=== PATIENT | female | born 1980 | race American Indian/Alaskan Native ===

== ENCOUNTER 2018-02-25 20:55 | Inpatient (IN) | payer MEDICAID, OTHER ==
[2018-02-25 20:55] VITALS: BMI 21.2
[2018-02-25] MEDS ORDERED: Sodium Chloride 0.9% 250 ML IV STA (21:36)
--- NOTE | 2018-02-25 22:23 | ED PDOC ---
HPI: General Adult Time Seen by Provider: 02/25/18 21:11 Chief Complaint (Nursing): Weakness/Neurological Deficit Chief Complaint (Provider): Low Blood Pressure History Per: Patient History/Exam Limitations: no limitations Onset/Duration Of Symptoms: Days (today) Current Symptoms Are (Timing): Still Present Additional Complaint(s): 37 year old female with chronic kidney disease, DM, and HTN presents to the ED with lower blood pressure and weakness onset last night. Patient reports associated lightheadedness, fatigue and a couple episodes of diarrhea. She states she usually gets dialysis on Sunday, Sunday and Sunday but was unable to get it today because her blood pressure was too low. Patient denies nausea, vomiting, cough, fever, chills or any other medical complaints. PMD: Dr. Seo Past Medical History Reviewed: Historical Data, Nursing Documentation, Vital Signs Vital Signs: Last Vital Signs Temp 98.1 F 03/01/18 17:00 Pulse 100 H 03/01/18 17:00 Resp 20 03/01/18 17:00 BP 151/83 H 03/01/18 17:00 Pulse Ox 100 03/01/18 17:00 - Medical History PMH: Anemia, Diabetes, HTN, Chronic Kidney Disease Denies: Depression, Deep Vein Thrombosis - Surgical History Surgical History: No Surg Hx Denies: Pacemaker - Family History Family History: States: Unknown Family Hx - Immunization History Hx Tetanus Toxoid Vaccination: No Hx Influenza Vaccination: No Hx Pneumococcal Vaccination: No - Home Medications Home Medications: Ambulatory Orders Medication Instructions Recorded No Known Home Med 02/26/18 - Allergies Allergies/Adverse Reactions: Allergies Allergy/AdvReac Type Severity Reaction Status Date / Time vancomycin Allergy RASH Verified 02/25/18 20:56 Review of Systems ROS Statement: Except As Marked, All Systems Reviewed And Found Negative Constitutional: Positive for: Weight loss ENT: Positive for: Throat Pain, Other Neurological: Positive for: Weakness Physical Exam - Reviewed Nursing Documentation Reviewed: Yes Vital Signs Reviewed: Yes - Physical Exam Appears: Positive for: No Acute Distress (tired and chronically ill) Head Exam: Positive for: ATRAUMATIC, NORMOCEPHALIC Skin: Positive for: Warm, Dry (ichthyotic skin on all extremities). Negative for: Rash ENT: Positive for: Pharynx Is (clear), Other (tacky mucous membranes) Neck: Positive for: Painless ROM, Supple Cardiovascular/Chest: Positive for: Regular Rate, Rhythm. Negative for: Murmur Respiratory: Positive for: Normal Breath Sounds. Negative for: Respiratory Distress Gastrointestinal/Abdominal: Positive for: Soft. Negative for: Tenderness Extremity: Positive for: Other (poor muscle bulk diffusely, Lower extremities: sutures in place post AV shunt placement, wound clean, dry, and intact, palpable thrill) Neurologic/Psych: Positive for: Alert, Oriented (x3) - Laboratory Results Result Diagrams: 02/28/18 04:35 03/01/18 09:14 - ECG O2 Sat by Pulse Oximetry: 100 (RA) Pulse Ox Interpretation: Normal Medical Decision Making Medical Decision Making: Time: 21:32 Initial Impression: lower back pain, dehydration, rule out sepsis or electrolyte abnormalities Initial Plan: --Type and screen --EKG --CMP --Lactic acid --magnesium --Phosphorus --urine preg --u dip --CBC with differentials --Partial Thromboplastin --Prothrombin time --CXR --NS --Blood culture --Urine Culture Scribe Attestation: Documented by Tori Orozco, acting as a scribe for Ely Peter MD Provider Scribe Attestation: All medical record entries made by the Scribe were at my direction and personally dictated by me. I have reviewed the chart and agree that the record accurately reflects my personal performance of the history, physical exam, medical decision making, and the department course for this patient. I have also personally directed, reviewed, and agree with the discharge instructions and disposition. Disposition - Clinical Impression Clinical Impression: Metabolic acidosis, Renal failure, ESRD (end stage renal disease) - Patient ED Disposition Is Patient to be Admitted: Transfer of Care - Disposition Disposition: Transfer of Care Disposition Time: 00:00 Condition: FAIR Patient Signed Over To: Saeed Bah Handoff Comments: pending Er workup, reassessment and final disposition
[2018-02-25 22:51] LABS: BASO # 0.1 K/uL (0.0-0.2); EOS # 0.2 K/uL (0.0-0.7); HEMOGLOBIN 9.6 g/dL (12.0-16.0); LYMPH # 1.4 K/uL (1.0-4.3); LYMPH % 12.5 % (20.0-40.0); MEAN CELL VOLUME 82.6 fl (81.0-99.0); MEAN CORPUSCULAR HEMOGLOBIN 25.4 pg (27.0-31.0); MEAN CORPUSCULAR HGB CONC 30.7 g/dL (33.0-37.0); MEAN PLATELET VOLUME 7.8 fl (7.2-11.7); MONO # 0.8 K/uL (0.0-0.8); MONO % 7.2 % (0.0-10.0); NEUT # 8.9 K/uL (1.8-7.0); NEUT % 77.3 % (50.0-75.0); NRBC % 0.1 % (0.0-0.0); RBC 3.79 Mil/uL (3.80-5.20); RED CELL DISTRIBUTION WIDTH 18.8 % (11.5-14.5); WHITE BLOOD COUNT 11.6 K/uL (4.8-10.8)
[2018-02-25 22:57] LABS: INR 1.1 (0.9-1.2); PROTHROMBIN TIME 12.3 Seconds (9.8-13.1)
[2018-02-25 22:58] LABS: PARTIAL THROMBOPLASTIN TIME 43.5 Seconds (25.6-37.1)
--- NOTE | 2018-02-26 00:30 | ED PDOC ---
- Laboratory Results Result Diagrams: 02/26/18 15:50 02/26/18 15:50 - ECG O2 Sat by Pulse Oximetry: 100 (RA) Pulse Ox Interpretation: Normal Medical Decision Making Medical Decision Making: Time; 00:00 --Transfer of care given to this provider by Dr. Peter pending ER workup and final disposition. Time: 00:30 --labs reviewed and were significant for marked metabolic acidosis as demonstrated by CO2 level of less than 5. --She also has marked elevated BUN and creatinine levels which is suggestive of missed dialysis session. --Patient denies missing any other session before today, which the provider is suspicious of. Time: 00:34 --Patient will be admitted to ICU as discussed with Dr. Ventura, hospitalist. Diagnosis is metabolic acidosis and end stage renal disease. Time; 01:47 --Dr. Apodaca is aware of patient and knows her well. He asks that patient be dialyzed. --Dialysis nurse has been called. ---- Scribe Attestation: Documented by Jo Conley, acting as a scribe for Saeed Bah MD Provider Scribe Attestation: All medical record entries made by the Scribe were at my direction and personally dictated by me. I have reviewed the chart and agree that the record accurately reflects my personal performance of the history, physical exam, medical decision making, and the department course for this patient. I have also personally directed, reviewed, and agree with the discharge instructions and disposition. Disposition - Clinical Impression Clinical Impression: Metabolic acidosis, Renal failure, ESRD (end stage renal disease) - POA Present On Arrival: None - Disposition Disposition: Admitted as In-Patient Disposition Time: 00:34 Condition: FAIR
[2018-02-26 00:31] LABS: ALB/GLOB RATIO 0.7 (1.0-2.1); ALBUMIN 4.2 g/dL (3.5-5.0); ALT/SGPT 12 U/L (9-52); AST/SGOT 15 U/L (14-36); BLOOD UREA NITROGEN 143 mg/dl (7-17); CALCIUM 8.9 mg/dL (8.4-10.2); GFR AFRICAN-AMERICAN 5; GFR NON-AFRICAN AMERICAN 4
--- NOTE | 2018-02-26 01:08 | CP.PCM.CON ---
History of Present Illness - History of Present Illness History of Present Illness: Attending: Dr Sanchez PMD: Dr Seo Repair Mechanic: Dr Apodaca Reason for consult: Critical care Management Chief Complaint: Generalized weakness/ Low Blood pressure The patient was seen and examined in the ED HPI: The Hx was obtained from the patient and after review of the medical chart. She is a 37 years old female with hx of DM II, HTN, ESRD on HD MWF. Because her blood pressure was very low today, hemodialysis was not done ,and she was sent to the ED for management. BP in ED 72/41mmHg. She referred no headache, dizziness, nausea, vomits, cough, fever, chills,chest pain nor SOB. She did have lightheadedness, fatigue and few episodes of Diarrhea. PMH: Anemia, Diabetes, HTN, ESRD on HD WMF; BM II; Diabetic foot ulcer; Sacral Decubitus; Anemia; PVD of right leg; CHF? PSH: Cesarian section; Right leg vascular surgery 12years ago SH: No smoking of cigarettes; No illegal drug use; No Alcohol; Live with the family Allergies: Vancomycin Medication: Denies Review of Systems - Constitutional Constitutional: Weakness. absent: Chills, Fever, Headache - EENT Eyes: Requires Corrective Lenses. absent: Diplopia, Floaters, Sees Flashes Ears: absent: Decreased Hearing, Ear Discharge, Tinnitus Nose/Mouth/Throat: absent: Epistaxis, Nasal Congestion, Sinus Pain, Sinus Pressure - Cardiovascular Cardiovascular: absent: Chest Pain, Dyspnea, Leg Edema - Respiratory Respiratory: absent: Cough, Dyspnea, Wheezing, Stridor, Chest Congestion - Gastrointestinal Gastrointestinal: Diarrhea. absent: Constipation, Nausea, Vomiting - Genitourinary Genitourinary: absent: Dysuria, Flank Pain, Urinary Frequency - Musculoskeletal Musculoskeletal: Arthralgias, Numbness. absent: Joint Swelling - Integumentary Integumentary: absent: Rash - Neurological Neurological: Dizziness. absent: Confusion, Focal Weakness, Vertigo - Psychiatric Psychiatric: absent: Anxiety, Depression, Panic Attacks - Endocrine Endocrine: absent: Palpitations, Polyphagia, Polyuria - Hematologic/Lymphatic Hematologic: absent: Easy Bleeding, Easy Bruising Past Patient History - Infectious Disease Hx of Infectious Diseases: None - Tetanus Immunizations Tetanus Immunization: Unknown - Past Medical History & Family History Past Medical History?: Yes - Past Social History Smoking Status: Never Smoked Chewing Tobacco Use: No Cigar Use: No Alcohol: None Drugs: Denies Home Situation {Lives}: With Family - CARDIAC Hx Hypertension: Yes Hx Pacemaker: No - PULMONARY Hx Respiratory Disorders: No - NEUROLOGICAL Hx Neurological Disorder: Yes Other/Comment: NEUROPATHY - HEENT Hx HEENT Problems: No - RENAL Hx Chronic Kidney Disease: Yes Hx Dialysis: Yes - ENDOCRINE/METABOLIC Hx Diabetes Mellitus Type 2: Yes - HEMATOLOGICAL/ONCOLOGICAL Hx Anemia: Yes - INTEGUMENTARY Hx Dermatological Problems: No - MUSCULOSKELETAL/RHEUMATOLOGICAL Hx Falls: No - GASTROINTESTINAL Hx Gastrointestinal Disorders: No - GENITOURINARY/GYNECOLOGICAL Hx Genitourinary Disorders: No - PSYCHIATRIC Hx Depression: No - SURGICAL HISTORY Hx Section: Yes Hx Mastectomy: No - ANESTHESIA Hx Anesthesia: Yes Hx Anesthesia Reactions: No Meds Allergies/Adverse Reactions: Allergies Allergy/AdvReac Type Severity Reaction Status Date / Time vancomycin Allergy RASH Verified 02/25/18 20:56 Physical Exam - Constitutional Appears: No Acute Distress - Head Exam Head Exam: ATRAUMATIC, NORMAL INSPECTION, NORMOCEPHALIC - Eye Exam Eye Exam: EOMI, Normal appearance Pupil Exam: NORMAL ACCOMODATION, PERRL - ENT Exam ENT Exam: Mucous Membranes Dry, Normal External Ear Exam - Neck Exam Neck exam: Positive for: Full Rom, Normal Inspection. Negative for: Lymphadenopathy, Tenderness - Respiratory Exam Respiratory Exam: Clear to Auscultation Bilateral. absent: Rales, Rhonchi, Wheezes - Cardiovascular Exam Cardiovascular Exam: REGULAR RHYTHM, RRR, +S1, +S2 - GI/Abdominal Exam GI & Abdominal Exam: Normal Bowel Sounds, Soft. absent: Mass, Organomegaly, Tenderness - Rectal Exam Rectal Exam: Deferred - Extremities Exam Additional comments: both lower extremities with dried skin with the right leg showing areas of skin wound healing. - Back Exam Back exam: NORMAL INSPECTION. absent: CVA tenderness (L), CVA tenderness (R) - Neurological Exam Neurological exam: Alert, CN II-XII Intact, Oriented x3, Reflexes Normal - Psychiatric Exam Psychiatric exam: Normal Affect, Normal Mood - Skin Skin Exam: Dry, Intact, Warm Results - Vital Signs Recent Vital Signs: Last Vital Signs Temp 98.8 F 02/25/18 20:56 Pulse 83 02/25/18 22:21 Resp 21 02/25/18 22:21 BP 106/43 L 02/25/18 22:21 Pulse Ox 100 02/26/18 01:06 - Labs Result Diagrams: 02/25/18 22:47 02/25/18 23:55 Labs: Laboratory Results - last 24 hr 02/25/18 02/25/18 02/25/18 22:47 22:47 22:47 WBC 11.6 H RBC 3.79 L Hgb 9.6 L Hct 31.3 L MCV 82.6 MCH 25.4 L MCHC 30.7 L RDW 18.8 H Plt Count 277 MPV 7.8 Neut % (Auto) 77.3 H Lymph % (Auto) 12.5 L [place] % (Auto) 7.2 Eos % (Auto) 2.0 Baso % (Auto) 1.0 Neut # (Auto) 8.9 H Lymph # (Auto) 1.4 [place] # (Auto) 0.8 Eos # (Auto) 0.2 Baso # (Auto) 0.1 PT 12.3 INR 1.1 APTT 43.5 H Sodium Potassium Chloride Carbon Dioxide Anion Gap BUN Creatinine Est GFR ( Amer) Est GFR (Non-Af Amer) Random Glucose Lactic Acid 1.2 Calcium Phosphorus Magnesium Total Bilirubin AST ALT Alkaline Phosphatase Total Protein Albumin Globulin Albumin/Globulin Ratio Blood Type Antibody Screen BBK History Checked 02/25/18 02/25/18 23:55 23:55 WBC RBC Hgb Hct MCV MCH MCHC RDW Plt Count MPV Neut % (Auto) Lymph % (Auto) [place] % (Auto) Eos % (Auto) Baso % (Auto) Neut # (Auto) Lymph # (Auto) [place] # (Auto) Eos # (Auto) Baso # (Auto) PT INR APTT Sodium 136 Potassium 4.9 Chloride 109 H Carbon Dioxide < 5 L* Anion Gap 27 H BUN 143 H* Creatinine 11.2 H* Est GFR ( Amer) 5 Est GFR (Non-Af Amer) 4 Random Glucose 270 H Lactic Acid Calcium 8.9 Phosphorus 7.4 H Magnesium 3.0 H Total Bilirubin 0.8 AST 15 ALT 12 Alkaline Phosphatase 233 H D Total Protein 10.5 H Albumin 4.2 Globulin 6.3 H Albumin/Globulin Ratio 0.7 L Blood Type B POSITIVE Antibody Screen Negative BBK History Checked Patient has bt - Imaging and Cardiology Chest x-ray Status: Image reviewed by me Additional comment: No infiltrate Cardiomegaly Right Internal jugular dialysis catheter with tip in right ventricle Assessment & Plan - Assessment and Plan (Free Text) Assessment: #. Hypotension #. Metabolic Acidosis #. DM II with Hyperglycemia #. ESRD On HD #. Anemia of chronic diseases; #. Leukocytosis Plan: 37 years old female with hx of DM II, HTN, ESRD on HD MWF. Because her blood pressure was very low today, hemodialysis was not done ,and she was sent to the ED for management. She referred no headache, dizziness, nausea, vomits, cough, fever, chills,chest pain nor SOB. She did have lightheadedness, fatigue and few episodes of Diarrhea. #. Hypotension in this patient could be caused by poor intake added to the Diarrhea that she mentioned - NS 250mls given in ED. 500mls bolus given in ICU followed by an IV drip - Will need [facility] for Dialysis if BP does not improve. BP in ICU 102/48mmHg - Monitor Blood pressure #. Metabolic Acidosis caused by the CKD - Administer 100mEq of Sodium Bicarbonate and follow with an IV drip of Sodium Bicarbonate at 80mls/hr - Follow ABG #. DM II with Hyperglycemia - Insulin Lispro sliding scale according to accucheck - HbA1c #. ESRD On HD - Consult Dr Apodaca Repair Mechanic for Hemodialysis #. Anemia of chronic diseases; - Follow hemoglobin #. Reactive Leukocytosis - follow WBC #. DVT prophylaxis with SCD and Heparin #. Code Status: Full - Date & Time Date: 02/26/18 Time: 01:07
[2018-02-26] MEDS ORDERED: Sodium Bicarbonate 7.5% (0.9 MEQ/ML) 50ML INJ IV ONE (02:53)
[2018-02-26] MEDS ORDERED: Sodium Chloride 0.9% 500 ML IV ONE (04:01)
[2018-02-26 04:40] LABS: ABG ALLEN TEST YES
[2018-02-26] MEDS: Sodium Bicarbonate 8.4% 100 MEQ in Dextrose 5%/0.45% NS 1,000 ML IV SCH ×2 (04:56→18:13)
[2018-02-26] MEDS ORDERED: Albumin Human 25% (12.5 gm/50 ml) IV ONE (08:09)
--- NOTE | 2018-02-26 08:12 | CP.PCM.CON ---
History of Present Illness - History of Present Illness History of Present Illness: Cope order 37 years of age female admitted to the emergency room complaining of lightheaded dizziness and she was found to have low blood pressure and very high BUN/creatinine. Patient stated that she did not have dialysis because of the low blood pressure and she is not cooperating well. Patient was admitted to intensive care unit and called for dialysis. the history was not completely available because of the patient is not given complete history and she does not want to talk much PMH: Anemia, Diabetes, HTN, ESRD on HD WMF; BM II; Diabetic foot ulcer; Sacral Decubitus; Anemia; PVD of right leg; CHF? PSH: Cesarian section; Right leg vascular surgery 12years ago SH: No smoking of cigarettes; No illegal drug use; No Alcohol; Live with the family Allergies: Vancomycin Review of Systems - Constitutional Constitutional: Malaise. absent: Chills, Fever - EENT Eyes: As Per HPI Nose/Mouth/Throat: absent: Epistaxis, Post Nasal Drip - Cardiovascular Cardiovascular: Dyspnea, Dyspnea on Exertion, Edema, Pedal Edema. absent: Acrocyanosis, Chest Pain - Respiratory Respiratory: Cough, Dyspnea, Chest Congestion. absent: Hemoptysis - Gastrointestinal Gastrointestinal: absent: Abdominal Pain, Coffee Ground Emesis, Vomiting - Genitourinary Genitourinary: Nocturia - Musculoskeletal Musculoskeletal: Abnormal Gait, Muscle Weakness - Neurological Neurological: Abnormal Gait. absent: Confusion - Psychiatric Psychiatric: Anxiety - Endocrine Endocrine: Fatigue - Hematologic/Lymphatic Hematologic: absent: Easy Bleeding Past Patient History - Infectious Disease Hx of Infectious Diseases: None - Tetanus Immunizations Tetanus Immunization: Unknown - Past Medical History & Family History Past Medical History?: Yes - Past Social History Smoking Status: Never Smoked Chewing Tobacco Use: No Cigar Use: No Alcohol: None Drugs: Denies Home Situation {Lives}: With Family - CARDIAC Hx Hypertension: Yes Hx Pacemaker: No - PULMONARY Hx Respiratory Disorders: No - NEUROLOGICAL Hx Neurological Disorder: Yes Other/Comment: NEUROPATHY - HEENT Hx HEENT Problems: No - RENAL Hx Chronic Kidney Disease: Yes Hx Dialysis: Yes - ENDOCRINE/METABOLIC Hx Diabetes Mellitus Type 2: Yes - HEMATOLOGICAL/ONCOLOGICAL Hx Anemia: Yes - INTEGUMENTARY Hx Dermatological Problems: No - MUSCULOSKELETAL/RHEUMATOLOGICAL Hx Falls: No - GASTROINTESTINAL Hx Gastrointestinal Disorders: No - GENITOURINARY/GYNECOLOGICAL Hx Genitourinary Disorders: No - PSYCHIATRIC Hx Depression: No - SURGICAL HISTORY Hx Section: Yes Hx Mastectomy: No - ANESTHESIA Hx Anesthesia: Yes Hx Anesthesia Reactions: No Meds Allergies/Adverse Reactions: Allergies Allergy/AdvReac Type Severity Reaction Status Date / Time vancomycin Allergy RASH Verified 02/25/18 20:56 - Medications Medications: Current Medications Albumin Human (Albumin Human 25% (12.5 Gm/50 Ml)) 50 gm IV ONCE ONE Stop: 02/26/18 08:10 Heparin Sodium (Porcine) (Heparin) 5,000 units SC Q8 NNAMDI PRN Reason: Protocol Sodium Bicarbonate 100 meq/ (Dextrose/Sodium Chloride) 1,100 mls @ 80 mls/hr IV .[id number] [facility] Stop: 02/27/18 02:56 Last Admin: 02/26/18 04:56 Dose: 80 mls/hr Insulin Human Lispro (Humalog) 0 units SC ACHS NNAMDI PRN Reason: Protocol Physical Exam - Constitutional Appears: No Acute Distress - ENT Exam ENT Exam: Mucous Membranes Moist - Neck Exam Neck exam: Negative for: Lymphadenopathy - Respiratory Exam Respiratory Exam: Rhonchi, Wheezes - Cardiovascular Exam Cardiovascular Exam: absent: Gallop, JVD, Rubs - GI/Abdominal Exam GI & Abdominal Exam: Normal Bowel Sounds. absent: Guarding - Extremities Exam Extremities exam: Negative for: calf tenderness - Back Exam Back exam: absent: CVA tenderness (L), CVA tenderness (R) - Neurological Exam Neurological exam: Alert - Psychiatric Exam Psychiatric exam: Anxious, Normal Affect Results - Vital Signs Recent Vital Signs: Last Vital Signs Temp 97.6 F 02/26/18 05:00 Pulse 89 02/26/18 06:15 Resp 25 H 02/26/18 06:15 BP 94/51 L 02/26/18 06:15 Pulse Ox 100 02/26/18 06:15 - Labs Result Diagrams: 02/25/18 22:47 02/26/18 08:10 Labs: Laboratory Results - last 24 hr 02/25/18 02/25/18 02/25/18 22:47 22:47 22:47 WBC 11.6 H RBC 3.79 L Hgb 9.6 L Hct 31.3 L MCV 82.6 MCH 25.4 L MCHC 30.7 L RDW 18.8 H Plt Count 277 MPV 7.8 Neut % (Auto) 77.3 H Lymph % (Auto) 12.5 L [place] % (Auto) 7.2 Eos % (Auto) 2.0 Baso % (Auto) 1.0 Neut # (Auto) 8.9 H Lymph # (Auto) 1.4 [place] # (Auto) 0.8 Eos # (Auto) 0.2 Baso # (Auto) 0.1 PT 12.3 INR 1.1 APTT 43.5 H pCO2 pO2 HCO3 ABG pH ABG Total CO2 ABG O2 Saturation ABG O2 Content ABG Base Excess ABG Hemoglobin ABG Carboxyhemoglobin POC ABG HHb (Measured) ABG Methemoglobin ABG O2 Capacity Sunny Test A-a O2 Difference Hgb O2 Saturation FiO2 Crit Value Called To Crit Value Called By Crit Value Read Back Blood Gas Notified Time Sodium Potassium Chloride Carbon Dioxide Anion Gap BUN Creatinine Est GFR ( Amer) Est GFR (Non-Af Amer) POC Glucose (mg/dL) Random Glucose Lactic Acid 1.2 Calcium Phosphorus Magnesium Total Bilirubin AST ALT Alkaline Phosphatase Total Protein Albumin Globulin Albumin/Globulin Ratio Blood Type Antibody Screen BBK History Checked 02/25/18 02/25/18 02/26/18 23:55 23:55 04:18 WBC RBC Hgb Hct MCV MCH MCHC RDW Plt Count MPV Neut % (Auto) Lymph % (Auto) [place] % (Auto) Eos % (Auto) Baso % (Auto) Neut # (Auto) Lymph # (Auto) [place] # (Auto) Eos # (Auto) Baso # (Auto) PT INR APTT pCO2 20 L pO2 129 H HCO3 8.3 L* ABG pH 7.11 L* ABG Total CO2 7.0 L ABG O2 Saturation 99.8 H ABG O2 Content 13.3 L ABG Base Excess -21.3 L ABG Hemoglobin 9.6 L ABG Carboxyhemoglobin 1.7 H POC ABG HHb (Measured) 0.2 ABG Methemoglobin 1.3 ABG O2 Capacity 13.3 L Sunny Test Yes A-a O2 Difference -4.0 Hgb O2 Saturation 96.8 FiO2 21.0 Crit Value Called To Elizabeth dale rn Crit Value Called By [id number] Crit Value Read Back Y Blood Gas Notified Time 439 Sodium 136 Potassium 4.9 Chloride 109 H Carbon Dioxide < 5 L* Anion Gap 27 H BUN 143 H* Creatinine 11.2 H* Est GFR ( Amer) 5 Est GFR (Non-Af Amer) 4 POC Glucose (mg/dL) Random Glucose 270 H Lactic Acid Calcium 8.9 Phosphorus 7.4 H Magnesium 3.0 H Total Bilirubin 0.8 AST 15 ALT 12 Alkaline Phosphatase 233 H D Total Protein 10.5 H Albumin 4.2 Globulin 6.3 H Albumin/Globulin Ratio 0.7 L Blood Type B POSITIVE Antibody Screen Negative BBK History Checked Patient has bt 02/26/18 04:50 WBC RBC Hgb Hct MCV MCH MCHC RDW Plt Count MPV Neut % (Auto) Lymph % (Auto) [place] % (Auto) Eos % (Auto) Baso % (Auto) Neut # (Auto) Lymph # (Auto) [place] # (Auto) Eos # (Auto) Baso # (Auto) PT INR APTT pCO2 pO2 HCO3 ABG pH ABG Total CO2 ABG O2 Saturation ABG O2 Content ABG Base Excess ABG Hemoglobin ABG Carboxyhemoglobin POC ABG HHb (Measured) ABG Methemoglobin ABG O2 Capacity Sunny Test A-a O2 Difference Hgb O2 Saturation FiO2 Crit Value Called To Crit Value Called By Crit Value Read Back Blood Gas Notified Time Sodium Potassium Chloride Carbon Dioxide Anion Gap BUN Creatinine Est GFR ( Amer) Est GFR (Non-Af Amer) POC Glucose (mg/dL) 158 H Random Glucose Lactic Acid Calcium Phosphorus Magnesium Total Bilirubin AST ALT Alkaline Phosphatase Total Protein Albumin Globulin Albumin/Globulin Ratio Blood Type Antibody Screen BBK History Checked Assessment & Plan (1) CHF (congestive heart failure) Status: Acute (2) Diabetes Status: Acute Priority: Medium (3) ESRD (end stage renal disease) Assessment and Plan: Patient admitted with his what appears to be severe uremia very high B UN very high creatinine. Patient is not having dialysis and was low blood pressure in addition to the rest of the problem she is complaining of pain just about all over her nonspecific and we could not ask many questions. The plan to do dialysis as soon as possible I made an arrangement to go ahead with the dialysis. The rest of the medical problem as per primary team Review the blood test noted total protein is over 10 with a low backache one should rule out multiple myeloma I discussed the case with the director of midwifery/staff midwife Status: Acute (4) Metabolic acidosis Status: Acute
[2018-02-26] MEDS: Insulin Lispro (humaLOG) 100 Units/ml Inj SC SCH ×4 (08:54→22:00)
[2018-02-26 09:01] LABS: CALCIUM 8.8 mg/dL (8.4-10.2); GFR AFRICAN-AMERICAN 5; GFR NON-AFRICAN AMERICAN 4
[2018-02-26 09:03] LABS: BLOOD UREA NITROGEN 150 mg/dl (7-17)
[2018-02-26 09:11] LABS: ARTERIAL BLOOD GAS HCO3 9.5 mmol/L (21-28); ARTERIAL BLOOD GAS HEMOGLOBIN 9.4 g/dL (11.7-17.4); ARTERIAL BLOOD GAS O2 SAT 99.9 % (95-98); ARTERIAL BLOOD GAS PCO2 22 mm/Hg (35-45); ARTERIAL BLOOD GAS PH 7.14 (7.35-7.45); ARTERIAL BLOOD GAS PO2 120 mm/Hg (80-100); ARTERIAL BLOOD GAS TCO2 8.2 mmol/L (22-28)
--- NOTE | 2018-02-26 09:34 | RAD ---
HISTORY: low blood pressure COMPARISON: No prior. FINDINGS: Right IJ dialysis catheter with tips in the SVC/RA junction the LUNGS: No active pulmonary disease. PLEURA: No significant pleural effusion identified, no pneumothorax apparent. CARDIOVASCULAR: Heart size is upper limits of normal. OSSEOUS STRUCTURES: No significant abnormalities. VISUALIZED UPPER ABDOMEN: Normal. OTHER FINDINGS: None. IMPRESSION: No active disease.
--- NOTE | 2018-02-26 11:11 | CARD ---
APPROVED REPORT EKG Measurement Heart [id number] <Conclusion> Normal sinus rhythm Prolonged QT Abnormal ECG
--- NOTE | 2018-02-26 14:05 | CP.PCM.PN ---
Subjective - Date & Time of Evaluation Date of Evaluation: 02/26/18 Time of Evaluation: 12:35 - Subjective Subjective: dialysis note She was seen on hemodialysis The mother at the bedside now Patient was complaining of some pain. When I tried to ask more question the location of the pain and more question about the patient and the mother became irritated and she started almost attacking me verbally And preventing thelma to ask any more question because she is in pain. Objective - Vital Signs/Intake and Output Vital Signs (last 24 hours): Temp Pulse Resp BP Pulse Ox 98.4 F 99 H 17 123/67 100 02/26/18 08:00 02/26/18 09:00 02/26/18 09:00 02/26/18 09:00 02/26/18 09:00 Intake and Output: 02/26/18 02/26/18 06:59 18:59 Intake Total 680 630 Balance 680 630 - Medications Medications: Current Medications Heparin Sodium (Porcine) (Heparin) 5,000 units SC Q8 NNAMDI PRN Reason: Protocol Last Admin: 02/26/18 08:53 Dose: 5,000 units Sodium Bicarbonate 100 meq/ (Dextrose/Sodium Chloride) 1,100 mls @ 80 mls/hr IV .[id number] NNAMDI Stop: 02/27/18 02:56 Last Admin: 02/26/18 04:56 Dose: 80 mls/hr Insulin Human Lispro (Humalog) 0 units SC ACHS NNAMDI PRN Reason: Protocol Last Admin: 02/26/18 12:18 Dose: Not Given - Labs Labs: 02/25/18 22:47 02/26/18 08:10 PT 12.3 Seconds (9.8-13.1) 02/25/18 22:47 INR 1.1 (0.9-1.2) 02/25/18 22:47 APTT 43.5 Seconds (25.6-37.1) H 02/25/18 22:47 - Constitutional Appears: No Acute Distress - ENT Exam ENT Exam: Mucous Membranes Moist - Neck Exam Neck Exam: absent: Lymphadenopathy - Respiratory Exam Respiratory Exam: Rhonchi, NORMAL BREATHING PATTERN. absent: Chest Wall Tenderness - GI/Abdominal Exam GI & Abdominal Exam: Soft - Extremities Exam Extremities Exam: absent: Calf Tenderness - Back Exam Back Exam: absent: CVA tenderness (L), CVA tenderness (R) - Neurological Exam Neurological Exam: Alert - Psychiatric Exam Psychiatric exam: Normal Affect - Skin Skin Exam: Cyanosis Assessment and Plan (1) CHF (congestive heart failure) Status: Acute (2) Diabetes Status: Acute (3) ESRD (end stage renal disease) Assessment & Plan: End stage renal disease patient receiving dialysis now. Sodium bath 138 Bicarbonate bath 34 Ultrafiltration targeting about 2500 mL Potassium bath 2 mEq As the patient receiving dialysis and after about 2 hours and 15 minutes approximately the mother and the patient insisted to terminate dialysis . Despite the explanation that the patient is uremic and has high B UN and creatinine and the mother will not allow dialysis.any more . Then we had to few conversation with the dialysis nurse at the bedside and they scheduled the patient for tomorrow if she is agreeable Status: Acute (4) Metabolic acidosis Status: Acute
[2018-02-26 15:58] LABS: VENOUS BLOOD GAS BASE EXCESS -6.6 mmol/L (0.0-2.0); VENOUS BLOOD GAS PCO2 22 mmHg (40-60); VENOUS BLOOD GAS PO2 72 mm/Hg (30-55); VENOUS BLOOD PH 7.45 (7.32-7.43)
[2018-02-26 16:05] LABS: BASO # 0.1 K/uL (0.0-0.2); BASO % 0.5 % (0.0-2.0); EOS # 0.2 K/uL (0.0-0.7); EOS % 1.6 % (0.0-4.0); HEMOGLOBIN 9.6 g/dL (12.0-16.0); LYMPH # 0.8 K/uL (1.0-4.3); LYMPH % 5.1 % (20.0-40.0); MEAN CELL VOLUME 77.5 fl (81.0-99.0); MEAN CORPUSCULAR HEMOGLOBIN 24.5 pg (27.0-31.0); MEAN CORPUSCULAR HGB CONC 31.7 g/dL (33.0-37.0); MONO # 0.7 K/uL (0.0-0.8); MONO % 4.8 % (0.0-10.0); NEUT # 13.6 K/uL (1.8-7.0); NRBC % 0.5 % (0.0-0.0); PLATELET COUNT 247 K/uL (130-400); RED CELL DISTRIBUTION WIDTH 18.2 % (11.5-14.5); WHITE BLOOD COUNT 15.4 K/uL (4.8-10.8)
[2018-02-26 16:23] LABS: ALB/GLOB RATIO 0.7 (1.0-2.1); ALBUMIN 4.3 g/dL (3.5-5.0); CALCIUM 8.9 mg/dL (8.4-10.2)
--- NOTE | 2018-02-26 16:39 | CP.PCM.HP ---
<Madyson Vargas - Last Filed: 02/26/18 15:43> History of Present Illness - History of Present Illness History of Present Illness: Patient seen and examined at bedside with Dr. Sanchez 37 yr old F presented to ED with complaint of low blood pressure and weakness x 1 day. PMHx includes ESRD on HD (MWF), HTN, IDDM type 2 and chronic back pain, left diabetic foot ulcer, sacral decubitus ulcer, anemia, PVD. Patient reports she was not able to get dialysis on sunday due to the low blood pressure. Associated symptoms are lightheadedness, fatigue and diarrhea. Patient and mother at bedside are uncooperative questions asked about medical history and with physical exam. [facility]. Patient had hospital admission on 12/31/17 at [facility] for severe metabolic acidosis with sepsis secondary to missed HD x 1 week, Triple phase bone scan done to rule out bone disease/osteo during that admission was normal, lumbar spine xray was also normal. Prior to that patient had hospital admission at [facility] in 05/2017 for sepsis secondary to UTI/pyelonephritis, fungal kidney infection and metabolic acidosis, was being treated with IV Micafungin but signed out AMA. PMD: Dr. Seo Card Doffer: Dr. Apodaca PMHx: ESRD on HD (MWF), HTN, IDDM type 2 and chronic back pain, left diabetic foot ulcer, sacral decubitus ulcer, anemia, PVD SurgHx: left AV fistula, debridement of left foot ulcer, , right leg vascular procedure 12 yrs ago ED course: vitals BP 71/41 mmHg, HR 82 bpm, Temp 98.8F, Resp 18, O2 sat 100% on room air -EKG: normal sinus rhythm at 84 bpm, prolonged QT 416 -CXR: no active pulmonary disease, right IJ dialysis catheter with tips in the SVC/RA junction -CBC: WBC 11.6, H/H 9.6/31.3, MCV 82.6 -PT 12.3, INR 1.1, PTT 43.5 -ABG: pH 7.14, pCO2 22, pO2 120, HCO3 9.5 -CMP: Na 136, K+ 4.9, Cl 109, HCO3 < 5, anion gap 27, BUN 143/Cr 11.2 -phosphorus 7.4, magnesium 3.0 -blood culture and urine culture ordered -ED treatment: NS at 250mls/hr Present on Admission - Present on Admission Any Indicators Present on Admission: Yes History of DVT/PE: Yes History of Uncontrolled Diabetes: Yes Urinary Catheter: No Decubitus Ulcer Present: Yes Decubitus Ulcer Location: sacral, left heel Decubitus Ulcer Stage: I History Surgical Site Infection Following: None Review of Systems - Review of Systems Systems not reviewed;Unavailable: Uncooperative (limited ROS, mother at bedside also uncooperative) - Constitutional Constitutional: absent: Chills, Headache - EENT Nose/Mouth/Throat: absent: Sore Throat - Cardiovascular Cardiovascular: absent: Chest Pain, Dyspnea - Respiratory Respiratory: absent: Cough - Gastrointestinal Gastrointestinal: absent: Nausea, Vomiting - Genitourinary Genitourinary: absent: Dysuria - Musculoskeletal Musculoskeletal: Arthralgias, Back Pain - Psychiatric Psychiatric: Irritability Past Patient History - Infectious Disease Hx of Infectious Diseases: None - Tetanus Immunizations Tetanus Immunization: Unknown - Past Medical History & Family History Past Medical History?: Yes - Past Social History Smoking Status: Never Smoked Chewing Tobacco Use: No Cigar Use: No Alcohol: None Drugs: Denies Home Situation {Lives}: With Family - CARDIAC Hx Hypertension: Yes Hx Pacemaker: No - PULMONARY Hx Respiratory Disorders: No - NEUROLOGICAL Hx Neurological Disorder: Yes Other/Comment: NEUROPATHY - HEENT Hx HEENT Problems: No - RENAL Hx Chronic Kidney Disease: Yes Hx Dialysis: Yes - ENDOCRINE/METABOLIC Hx Diabetes Mellitus Type 2: Yes - HEMATOLOGICAL/ONCOLOGICAL Hx Anemia: Yes - INTEGUMENTARY Hx Dermatological Problems: No - MUSCULOSKELETAL/RHEUMATOLOGICAL Hx Falls: No - GASTROINTESTINAL Hx Gastrointestinal Disorders: No - GENITOURINARY/GYNECOLOGICAL Hx Genitourinary Disorders: No - PSYCHIATRIC Hx Depression: No - SURGICAL HISTORY Hx Section: Yes Hx Mastectomy: No - ANESTHESIA Hx Anesthesia: Yes Hx Anesthesia Reactions: No Meds Allergies/Adverse Reactions: Allergies Allergy/AdvReac Type Severity Reaction Status Date / Time vancomycin Allergy RASH Verified 02/25/18 20:56 Physical Exam - Constitutional Appears: Toxic, Unkempt, Older Than Stated Age, Cachectic, Chronically Ill - Head Exam Head Exam: NORMOCEPHALIC - Eye Exam Eye Exam: EOMI - ENT Exam ENT Exam: Mucous Membranes Moist - Respiratory Exam Respiratory Exam: NORMAL BREATHING PATTERN - Cardiovascular Exam Cardiovascular Exam: REGULAR RHYTHM - GI/Abdominal Exam GI & Abdominal Exam: Normal Bowel Sounds, Soft. absent: Tenderness - Extremities Exam Additional comments: uncooperative with exam of extremities: could visualize stage 1 ulcer of left foot - Neurological Exam Neurological exam: Alert - Psychiatric Exam Psychiatric exam: Depressed, Flat Affect - Skin Skin Exam: Dry, Warm Results - Vital Signs Recent Vital Signs: Last Vital Signs Temp 98.4 F 02/26/18 08:00 Pulse 105 H 02/26/18 13:00 Resp 17 02/26/18 09:00 BP 168/100 H 02/26/18 13:00 Pulse Ox 100 02/26/18 09:00 - Labs Result Diagrams: 02/25/18 22:47 02/26/18 08:10 Labs: Laboratory Results - last 24 hr 02/25/18 02/25/18 02/25/18 22:47 22:47 22:47 WBC 11.6 H RBC 3.79 L Hgb 9.6 L Hct 31.3 L MCV 82.6 MCH 25.4 L MCHC 30.7 L RDW 18.8 H Plt Count 277 MPV 7.8 Neut % (Auto) 77.3 H Lymph % (Auto) 12.5 L [place] % (Auto) 7.2 Eos % (Auto) 2.0 Baso % (Auto) 1.0 Neut # (Auto) 8.9 H Lymph # (Auto) 1.4 [place] # (Auto) 0.8 Eos # (Auto) 0.2 Baso # (Auto) 0.1 PT 12.3 INR 1.1 APTT 43.5 H pCO2 pO2 HCO3 ABG pH ABG Total CO2 ABG O2 Saturation ABG O2 Content ABG Base Excess ABG Hemoglobin ABG Carboxyhemoglobin POC ABG HHb (Measured) ABG Methemoglobin ABG O2 Capacity Sunny Test A-a O2 Difference Hgb O2 Saturation FiO2 Crit Value Called To Crit Value Called By Crit Value Read Back Blood Gas Notified Time Sodium Potassium Chloride Carbon Dioxide Anion Gap BUN Creatinine Est GFR ( Amer) Est GFR (Non-Af Amer) POC Glucose (mg/dL) Random Glucose Hemoglobin A1c Lactic Acid 1.2 Calcium Phosphorus Magnesium Total Bilirubin AST ALT Alkaline Phosphatase Total Protein Albumin Globulin Albumin/Globulin Ratio Procalcitonin Blood Type Antibody Screen BBK History Checked 02/25/18 02/25/18 02/26/18 23:55 23:55 04:18 WBC RBC Hgb Hct MCV MCH MCHC RDW Plt Count MPV Neut % (Auto) Lymph % (Auto) [place] % (Auto) Eos % (Auto) Baso % (Auto) Neut # (Auto) Lymph # (Auto) [place] # (Auto) Eos # (Auto) Baso # (Auto) PT INR APTT pCO2 22 L pO2 120 H HCO3 9.5 L* ABG pH 7.14 L* ABG Total CO2 8.2 L ABG O2 Saturation 99.9 H ABG O2 Content 13.0 L ABG Base Excess -19.8 L ABG Hemoglobin 9.4 L ABG Carboxyhemoglobin 1.8 H POC ABG HHb (Measured) 0.1 ABG Methemoglobin 1.3 ABG O2 Capacity 13.0 L Sunny Test Yes A-a O2 Difference 2.0 Hgb O2 Saturation 96.8 FiO2 21.0 Crit Value Called To Dr daylin dhaliwal Crit Value Called By 23 Crit Value Read Back Y Blood Gas Notified Time 910 Sodium 136 Potassium 4.9 Chloride 109 H Carbon Dioxide < 5 L* Anion Gap 27 H BUN 143 H* Creatinine 11.2 H* Est GFR ( Amer) 5 Est GFR (Non-Af Amer) 4 POC Glucose (mg/dL) Random Glucose 270 H Hemoglobin A1c Lactic Acid Calcium 8.9 Phosphorus 7.4 H Magnesium 3.0 H Total Bilirubin 0.8 AST 15 ALT 12 Alkaline Phosphatase 233 H D Total Protein 10.5 H Albumin 4.2 Globulin 6.3 H Albumin/Globulin Ratio 0.7 L Procalcitonin Blood Type B POSITIVE Antibody Screen Negative BBK History Checked Patient has bt 02/26/18 02/26/18 02/26/18 04:50 08:10 08:10 WBC RBC Hgb Hct MCV MCH MCHC RDW Plt Count MPV Neut % (Auto) Lymph % (Auto) [place] % (Auto) Eos % (Auto) Baso % (Auto) Neut # (Auto) Lymph # (Auto) [place] # (Auto) Eos # (Auto) Baso # (Auto) PT INR APTT pCO2 pO2 HCO3 ABG pH ABG Total CO2 ABG O2 Saturation ABG O2 Content ABG Base Excess ABG Hemoglobin ABG Carboxyhemoglobin POC ABG HHb (Measured) ABG Methemoglobin ABG O2 Capacity Sunny Test A-a O2 Difference Hgb O2 Saturation FiO2 Crit Value Called To Crit Value Called By Crit Value Read Back Blood Gas Notified Time Sodium Potassium Chloride Carbon Dioxide Anion Gap BUN Creatinine Est GFR ( Amer) Est GFR (Non-Af Amer) POC Glucose (mg/dL) 158 H Random Glucose Hemoglobin A1c 7.4 H Lactic Acid Calcium Phosphorus Magnesium Total Bilirubin AST ALT Alkaline Phosphatase Total Protein Albumin Globulin Albumin/Globulin Ratio Procalcitonin 0.53 H Blood Type Antibody Screen BBK History Checked 02/26/18 02/26/18 08:10 12:08 WBC RBC Hgb Hct MCV MCH MCHC RDW Plt Count MPV Neut % (Auto) Lymph % (Auto) [place] % (Auto) Eos % (Auto) Baso % (Auto) Neut # (Auto) Lymph # (Auto) [place] # (Auto) Eos # (Auto) Baso # (Auto) PT INR APTT pCO2 pO2 HCO3 ABG pH ABG Total CO2 ABG O2 Saturation ABG O2 Content ABG Base Excess ABG Hemoglobin ABG Carboxyhemoglobin POC ABG HHb (Measured) ABG Methemoglobin ABG O2 Capacity Sunny Test A-a O2 Difference Hgb O2 Saturation FiO2 Crit Value Called To Crit Value Called By Crit Value Read Back Blood Gas Notified Time Sodium 142 Potassium 4.4 Chloride 110 H Carbon Dioxide < 5 L* Anion Gap 31 H BUN 150 H* Creatinine 10.7 H* Est GFR ( Amer) 5 Est GFR (Non-Af Amer) 4 POC Glucose (mg/dL) 147 H Random Glucose 178 H Hemoglobin A1c Lactic Acid Calcium 8.8 Phosphorus Magnesium Total Bilirubin AST ALT Alkaline Phosphatase Total Protein Albumin Globulin Albumin/Globulin Ratio Procalcitonin Blood Type Antibody Screen BBK History Checked Assessment & Plan - Assessment and Plan (Free Text) Assessment: 37 yr old F admitted for metabolic acidosis and ESRD on HD with missed HD session. Plan: -admit to ICU -Nephrology consult appreciated, patient scheduled for hemodialysis today -tylenol PRN pain (had normal lumbar spine xray and normal triple phase bone scan in 01/2018) -f/u urine and blood culture -Lispro coverage scale ACHS -heart healthy/renal diet, IV fluids -PT/OT - Date & Time Date: 02/26/18 Time: 07:50 <Carlos Sanchez - Last Filed: 03/02/18 14:25> Results - Vital Signs Recent Vital Signs: Last Vital Signs Temp 98.1 F 03/01/18 17:00 Pulse 100 H 03/01/18 17:00 Resp 20 03/01/18 17:00 BP 151/83 H 03/01/18 17:00 Pulse Ox 100 03/01/18 18:39 - Labs Result Diagrams: 02/28/18 04:35 03/01/18 09:14 Labs: Laboratory Results - last 24 hr 02/28/18 03/01/18 09:06 15:55 POC Glucose (mg/dL) 297 H IgG 4000 H IgA 423 IgM 176 Assessment & Plan - Assessment and Plan (Free Text) Assessment: Patient was personally seen and examined by me in rounds with residents. Available labs and diagnostic data reviewed. Case, Patient's condition and management plan discussed with residents in rounds. Agree with resident's progress note. Plan: As ordered.
[2018-02-26 17:18] LABS: EOSINOPHIL 3 % (0-7); LYMPHOCYTE 7 % (20-50); MONOCYTE 5 % (0-10); NEUTROPHIL 85 % (42-75); PLATELET ESTIMATE NORMAL (NORMAL); TOTAL CELLS COUNTED 100
[2018-02-26 17:19] LABS: ANISOCYTOSIS SLIGHT; HYPOCHROMIC MODERATE; TARGET CELLS SLIGHT
[2018-02-26 17:20] LABS: LARGE PLATELETS PRESENT; OVALOCYTES MODERATE
[2018-02-27 05:45] LABS: BASO # 0.1 K/uL (0.0-0.2); BASO % 0.6 % (0.0-2.0); EOS # 0.1 K/uL (0.0-0.7); EOS % 1.1 % (0.0-4.0); HEMOGLOBIN 8.4 g/dL (12.0-16.0); LYMPH % 7.9 % (20.0-40.0); MEAN CELL VOLUME 78.2 fl (81.0-99.0); MEAN CORPUSCULAR HEMOGLOBIN 24.7 pg (27.0-31.0); MEAN CORPUSCULAR HGB CONC 31.6 g/dL (33.0-37.0); MEAN PLATELET VOLUME 7.4 fl (7.2-11.7); MONO # 0.9 K/uL (0.0-0.8); MONO % 6.9 % (0.0-10.0); NEUT # 10.5 K/uL (1.8-7.0); NEUT % 83.5 % (50.0-75.0); NRBC % 0.4 % (0.0-0.0); RBC 3.42 Mil/uL (3.80-5.20); RED CELL DISTRIBUTION WIDTH 18.2 % (11.5-14.5); WHITE BLOOD COUNT 12.5 K/uL (4.8-10.8)
[2018-02-27 06:21] LABS: ALB/GLOB RATIO 0.7 (1.0-2.1); ALBUMIN 3.7 g/dL (3.5-5.0); CALCIUM 8.4 mg/dL (8.4-10.2)
[2018-02-27] MEDS: Insulin Lispro (humaLOG) 100 Units/ml Inj SC SCH ×5 (08:24→21:38)
--- NOTE | 2018-02-27 10:50 | CP.PCM.CON ---
History of Present Illness - History of Present Illness History of Present Illness: Psychiatry consult note CC: "I'm fine. I don't know why they called you." HPI: 37 yo female w/ h/o ESRD on HD (MWF), HTN, IDDM type 2 and chronic back pain, left diabetic foot ulcer, sacral decubitus ulcer, anemia, PVD, admitted w / metabolic acidosis. Patient denies psychiatric history. Denies depression/ anxiety/AH/VH/paranoia/delusions/SI/HI. She has no acute psychiatric complaints and is not interested in psychiatric treatment or medications. She is able to explain the risks of leaving the hospital and the risks of refusing medical treatment include worsening diabetes, ERSD and possibly . PPHx: Denies past psychiatric history PMHx: ESRD on HD (MWF), HTN, IDDM type 2 and chronic back pain, left diabetic foot ulcer, sacral decubitus ulcer, anemia, PVD SurgHx: left AV fistula, debridement of left foot ulcer, , right leg vascular procedure 12 yrs ago ALL: Vancomycin MSE: A + O x 3, calm, cooperative, no acute distress, good eye contact, mood/ affect neutral, no AH/VH, thought process- linear/coherent, fair I/J, good impulse control Impression: 37 yo female w/ h/o ESRD on HD (MWF), HTN, IDDM type 2 and chronic back pain, left diabetic foot ulcer, sacral decubitus ulcer, anemia, PVD, admitted w/ metabolic acidosis. Patient has capacity to make medical decisions at this time and capacity to make the decision to leave the hospital. She denies acute depression/anxiety, denies all acute psychiatric complaints and is not interested in psychiatric treatment at this time. Past Patient History - Infectious Disease Hx of Infectious Diseases: None - Tetanus Immunizations Tetanus Immunization: Unknown - Past Medical History & Family History Past Medical History?: Yes - Past Social History Smoking Status: Never Smoked Chewing Tobacco Use: No Cigar Use: No Alcohol: None Drugs: Denies Home Situation {Lives}: With Family - CARDIAC Hx Hypertension: Yes Hx Pacemaker: No - PULMONARY Hx Respiratory Disorders: No - NEUROLOGICAL Hx Neurological Disorder: Yes Other/Comment: NEUROPATHY - HEENT Hx HEENT Problems: No - RENAL Hx Chronic Kidney Disease: Yes Hx Dialysis: Yes - ENDOCRINE/METABOLIC Hx Diabetes Mellitus Type 2: Yes - HEMATOLOGICAL/ONCOLOGICAL Hx Anemia: Yes - INTEGUMENTARY Hx Dermatological Problems: No - MUSCULOSKELETAL/RHEUMATOLOGICAL Hx Falls: No - GASTROINTESTINAL Hx Gastrointestinal Disorders: No - GENITOURINARY/GYNECOLOGICAL Hx Genitourinary Disorders: No - PSYCHIATRIC Hx Depression: No - SURGICAL HISTORY Hx Section: Yes Hx Mastectomy: No - ANESTHESIA Hx Anesthesia: Yes Hx Anesthesia Reactions: No Meds Allergies/Adverse Reactions: Allergies Allergy/AdvReac Type Severity Reaction Status Date / Time vancomycin Allergy RASH Verified 02/25/18 20:56 - Medications Medications: Current Medications Heparin Sodium (Porcine) (Heparin) 5,000 units SC Q8 NNAMDI PRN Reason: Protocol Last Admin: 02/27/18 08:28 Dose: Not Given Insulin Human Lispro (Humalog) 0 units SC ACHS NNAMDI PRN Reason: Protocol Last Admin: 02/27/18 08:27 Dose: Not Given Results - Vital Signs Recent Vital Signs: Last Vital Signs Temp 98.5 F 02/27/18 08:00 Pulse 100 H 02/27/18 10:00 Resp 17 02/27/18 10:00 BP 146/92 H 02/27/18 10:00 Pulse Ox 100 02/27/18 10:00 - Labs Result Diagrams: 02/27/18 04:45 02/27/18 04:45 Labs: Laboratory Results - last 24 hr 02/26/18 02/26/18 02/26/18 08:10 08:10 12:08 WBC RBC Hgb Hct MCV MCH MCHC RDW Plt Count MPV Neut % (Auto) Lymph % (Auto) [place] % (Auto) Eos % (Auto) Baso % (Auto) Neut # (Auto) Lymph # (Auto) [place] # (Auto) Eos # (Auto) Baso # (Auto) Neutrophils % (Manual) Lymphocytes % (Manual) Monocytes % (Manual) Eosinophils % (Manual) Platelet Estimate Large Platelets Hypochromasia (manual) Anisocytosis (manual) Macrocytosis (manual) Target Cells Ovalocytes pO2 VBG pH VBG pCO2 VBG HCO3 VBG Total CO2 VBG O2 Sat (Calc) VBG Base Excess VBG Potassium Sodium Chloride Glucose Lactate FiO2 Potassium Carbon Dioxide Anion Gap BUN Creatinine Est GFR ( Amer) Est GFR (Non-Af Amer) POC Glucose (mg/dL) 147 H Random Glucose Hemoglobin A1c 7.4 H Calcium Phosphorus Magnesium Total Bilirubin AST ALT Alkaline Phosphatase Total Protein Albumin Globulin Albumin/Globulin Ratio Procalcitonin 0.53 H Venous Blood Potassium 02/26/18 02/26/18 02/26/18 15:50 15:50 15:50 WBC 15.4 H RBC 3.90 Hgb 9.6 L Hct 30.2 L MCV 77.5 L D MCH 24.5 L MCHC 31.7 L RDW 18.2 H Plt Count 247 MPV 7.0 L Neut % (Auto) 88.0 H Lymph % (Auto) 5.1 L [place] % (Auto) 4.8 Eos % (Auto) 1.6 Baso % (Auto) 0.5 Neut # (Auto) 13.6 H Lymph # (Auto) 0.8 L [place] # (Auto) 0.7 Eos # (Auto) 0.2 Baso # (Auto) 0.1 Neutrophils % (Manual) 85 H Lymphocytes % (Manual) 7 L Monocytes % (Manual) 5 Eosinophils % (Manual) 3 Platelet Estimate Normal Large Platelets Present Hypochromasia (manual) Moderate Anisocytosis (manual) Slight Macrocytosis (manual) Slight Target Cells Slight Ovalocytes Moderate pO2 72 H VBG pH 7.45 H VBG pCO2 22 L VBG HCO3 19.7 VBG Total CO2 16.0 L VBG O2 Sat (Calc) 98.0 H VBG Base Excess -6.6 L VBG Potassium 3.3 L Sodium 135.0 138 Chloride 103.0 103 Glucose 153 H Lactate 2.8 H FiO2 21.0 Potassium 3.3 L Carbon Dioxide 12 L Anion Gap 26 H BUN 72 H Creatinine 6.3 H Est GFR ( Amer) 9 Est GFR (Non-Af Amer) 7 POC Glucose (mg/dL) Random Glucose 155 H Hemoglobin A1c Calcium 8.9 Phosphorus 2.3 L Magnesium 2.2 Total Bilirubin 1.3 AST 19 ALT 6 L D Alkaline Phosphatase 232 H Total Protein 10.6 H Albumin 4.3 Globulin 6.3 H Albumin/Globulin Ratio 0.7 L Procalcitonin Venous Blood Potassium 3.3 L 02/26/18 02/26/18 02/27/18 16:43 20:57 04:45 WBC 12.5 H RBC 3.42 L Hgb 8.4 L Hct 26.7 L MCV 78.2 L MCH 24.7 L MCHC 31.6 L RDW 18.2 H Plt Count 247 MPV 7.4 Neut % (Auto) 83.5 H Lymph % (Auto) 7.9 L [place] % (Auto) 6.9 Eos % (Auto) 1.1 Baso % (Auto) 0.6 Neut # (Auto) 10.5 H Lymph # (Auto) 1.0 [place] # (Auto) 0.9 H Eos # (Auto) 0.1 Baso # (Auto) 0.1 Neutrophils % (Manual) Lymphocytes % (Manual) Monocytes % (Manual) Eosinophils % (Manual) Platelet Estimate Large Platelets Hypochromasia (manual) Anisocytosis (manual) Macrocytosis (manual) Target Cells Ovalocytes pO2 VBG pH VBG pCO2 VBG HCO3 VBG Total CO2 VBG O2 Sat (Calc) VBG Base Excess VBG Potassium Sodium Chloride Glucose Lactate FiO2 Potassium Carbon Dioxide Anion Gap BUN Creatinine Est GFR ( Amer) Est GFR (Non-Af Amer) POC Glucose (mg/dL) 121 H 142 H Random Glucose Hemoglobin A1c Calcium Phosphorus Magnesium Total Bilirubin AST ALT Alkaline Phosphatase Total Protein Albumin Globulin Albumin/Globulin Ratio Procalcitonin Venous Blood Potassium 02/27/18 02/27/18 04:45 04:53 WBC RBC Hgb Hct MCV MCH MCHC RDW Plt Count MPV Neut % (Auto) Lymph % (Auto) [place] % (Auto) Eos % (Auto) Baso % (Auto) Neut # (Auto) Lymph # (Auto) [place] # (Auto) Eos # (Auto) Baso # (Auto) Neutrophils % (Manual) Lymphocytes % (Manual) Monocytes % (Manual) Eosinophils % (Manual) Platelet Estimate Large Platelets Hypochromasia (manual) Anisocytosis (manual) Macrocytosis (manual) Target Cells Ovalocytes pO2 VBG pH VBG pCO2 VBG HCO3 VBG Total CO2 VBG O2 Sat (Calc) VBG Base Excess VBG Potassium Sodium 139 Chloride 104 Glucose Lactate FiO2 Potassium 3.0 L Carbon Dioxide 16 L Anion Gap 22 H BUN 80 H Creatinine 6.5 H Est GFR ( Amer) 9 Est GFR (Non-Af Amer) 7 POC Glucose (mg/dL) 173 H Random Glucose 174 H Hemoglobin A1c Calcium 8.4 Phosphorus Magnesium Total Bilirubin 1.4 H AST 15 ALT 9 D Alkaline Phosphatase 182 H D Total Protein 9.3 H Albumin 3.7 Globulin 5.6 H Albumin/Globulin Ratio 0.7 L Procalcitonin Venous Blood Potassium
--- NOTE | 2018-02-27 16:54 | CP.PCM.PN ---
Subjective - Date & Time of Evaluation Date of Evaluation: 02/27/18 Time of Evaluation: 16:52 - Subjective Subjective: Patient M bed she appeared to be somewhat comfortable. No pain and reported now And vital sign stable with normal blood pressure Objective - Vital Signs/Intake and Output Vital Signs (last 24 hours): Temp Pulse Resp BP Pulse Ox 97.7 F 91 H 18 141/87 99 02/27/18 16:00 02/27/18 16:00 02/27/18 16:00 02/27/18 16:00 02/27/18 12:00 Intake and Output: 02/27/18 02/27/18 06:59 18:59 Intake Total 800 540 Balance 800 540 - Medications Medications: Current Medications Heparin Sodium (Porcine) (Heparin) 5,000 units SC Q8 NNAMDI PRN Reason: Protocol Last Admin: 02/27/18 16:37 Dose: Not Given Insulin Human Lispro (Humalog) 0 units SC ACHS NNAMDI PRN Reason: Protocol Last Admin: 02/27/18 16:42 Dose: Not Given - Labs Labs: 02/27/18 04:45 02/27/18 04:45 PT 12.3 Seconds (9.8-13.1) 02/25/18 22:47 INR 1.1 (0.9-1.2) 02/25/18 22:47 APTT 43.5 Seconds (25.6-37.1) H 02/25/18 22:47 - Constitutional Appears: No Acute Distress - ENT Exam ENT Exam: Mucous Membranes Moist - Neck Exam Neck Exam: absent: Lymphadenopathy - Respiratory Exam Respiratory Exam: NORMAL BREATHING PATTERN. absent: Chest Wall Tenderness - Cardiovascular Exam Cardiovascular Exam: absent: JVD, Rubs - GI/Abdominal Exam GI & Abdominal Exam: Soft, Normal Bowel Sounds - Extremities Exam Extremities Exam: absent: Calf Tenderness - Back Exam Back Exam: absent: CVA tenderness (L), CVA tenderness (R) - Neurological Exam Neurological Exam: Alert - Skin Skin Exam: absent: Cyanosis Assessment and Plan (1) CHF (congestive heart failure) Status: Acute (2) Diabetes Status: Acute (3) ESRD (end stage renal disease) Assessment & Plan: End stage renal disease patient did not complete hemodialysis yesterday. Scheduled to have hemodialysis shortly patient is aware. Vital sign appear to be stable patient has hypotensive episode yesterday however today blood pressure appears to be acceptable. Patient still have mild leukocytosis. Patient about to have dialysis order was given. PTH pending Anemia start EPO 5000 unit Status: Acute (4) Metabolic acidosis Status: Acute
[2018-02-27] MEDS: Epoetin Alfa 20000 UNIT/ML Inj IV SCH (22:21)
[2018-02-28 05:37] LABS: BASO # 0.1 K/uL (0.0-0.2); BASO % 0.7 % (0.0-2.0); EOS # 0.2 K/uL (0.0-0.7); EOS % 1.5 % (0.0-4.0); HEMOGLOBIN 8.7 g/dL (12.0-16.0); LYMPH # 1.2 K/uL (1.0-4.3); MEAN CORPUSCULAR HEMOGLOBIN 24.8 pg (27.0-31.0); MEAN CORPUSCULAR HGB CONC 31.8 g/dL (33.0-37.0); MEAN PLATELET VOLUME 7.4 fl (7.2-11.7); MONO # 0.9 K/uL (0.0-0.8); MONO % 8.8 % (0.0-10.0); NRBC % 0.7 % (0.0-0.0); RBC 3.5 Mil/uL (3.80-5.20); RED CELL DISTRIBUTION WIDTH 18.7 % (11.5-14.5); WHITE BLOOD COUNT 10.3 K/uL (4.8-10.8)
--- NOTE | 2018-02-28 05:56 | CP.PCM.PN ---
<Madyson Vargas - Last Filed: 02/28/18 06:12> Subjective - Date & Time of Evaluation Date of Evaluation: 02/27/18 Time of Evaluation: 07:30 - Subjective Subjective: Patient seen and examined at bedside with Dr. Sanchez. Uncooperative with questions or physical exam. Patient has refused morning medications and treatment. She is scheduled for hemodialysis today. Objective - Vital Signs/Intake and Output Vital Signs (last 24 hours): Temp Pulse Resp BP Pulse Ox 99.4 F 93 H 20 147/90 99 02/28/18 04:00 02/28/18 04:00 02/28/18 04:00 02/28/18 04:00 02/28/18 04:00 Intake and Output: 02/27/18 02/28/18 18:59 06:59 Intake Total 690 Output Total 1000 Balance 690 -1000 - Medications Medications: Current Medications Epoetin Constantine (Procrit) 5,000 unit IV MWF [facility] Last Admin: 02/27/18 22:21 Dose: 5,000 unit Heparin Sodium (Porcine) (Heparin) 5,000 units SC Q8 [facility] PRN Reason: Protocol Last Admin: 02/28/18 01:26 Dose: Not Given Insulin Human Lispro (Humalog) 0 units SC ACHS [facility] PRN Reason: Protocol Last Admin: 02/27/18 21:38 Dose: Not Given - Labs Labs: 02/28/18 04:35 02/27/18 04:45 PT 12.3 Seconds (9.8-13.1) 02/25/18 22:47 INR 1.1 (0.9-1.2) 02/25/18 22:47 APTT 43.5 Seconds (25.6-37.1) H 02/25/18 22:47 - Constitutional Appears: No Acute Distress, Cachectic, Chronically Ill, Other (patient covered up with her blanket, lying prone, refused to turn for physical exam) Assessment and Plan - Assessment and Plan (Free Text) Assessment: 37 yr old F admitted for metabolic acidosis and ESRD on HD with missed HD session. Improving. Plan: -psych consult -Hemodialysis scheduled for today -Nephrology consult appreciated -tylenol PRN pain (had normal lumbar spine xray and normal triple phase bone scan in 01/2018) -blood culture negative x 48hrs -Lispro coverage scale ACHS -heart healthy/renal diet, IV fluids -PT/OT <Carlos Sanchez K - Last Filed: 03/02/18 12:43> Objective - Vital Signs/Intake and Output Vital Signs (last 24 hours): Temp Pulse Resp BP Pulse Ox 98.1 F 100 H 20 151/83 H 100 03/01/18 17:00 03/01/18 17:00 03/01/18 17:00 03/01/18 17:00 03/01/18 18:39 - Labs Labs: 02/28/18 04:35 03/01/18 09:14 PT 12.3 Seconds (9.8-13.1) 02/25/18 22:47 INR 1.1 (0.9-1.2) 02/25/18 22:47 APTT 43.5 Seconds (25.6-37.1) H 02/25/18 22:47 Assessment and Plan - Assessment and Plan (Free Text) Assessment: Patient was personally seen and examined by me in rounds with residents. Available labs and diagnostic data reviewed. Case, Patient's condition and management plan discussed with residents in rounds. Agree with resident's progress note. Plan: As ordered.
[2018-02-28 06:36] LABS: ALB/GLOB RATIO 0.7 (1.0-2.1); ALBUMIN 3.8 g/dL (3.5-5.0); CALCIUM 8.5 mg/dL (8.4-10.2)
[2018-02-28] MEDS: Insulin Lispro (humaLOG) 100 Units/ml Inj SC SCH ×4 (06:47→21:11)
[2018-02-28] MEDS ORDERED: Potassium Chloride 20 mEq/15 ml LIQ UD PO ONE (07:13)
[2018-02-28] MEDS ORDERED: Potassium Chloride 20 mEq ER Tab PO ONE ×2 (07:43→08:04)
--- NOTE | 2018-02-28 08:35 | CP.PCM.PN ---
Subjective - Date & Time of Evaluation Date of Evaluation: 02/28/18 Time of Evaluation: 08:32 - Subjective Subjective: Patient M bed awake and conscious appears to be comfortable no acute distress. Patient reported she is eating no nausea no vomiting. She completed 3 hours of dialysis yesterday Objective - Vital Signs/Intake and Output Vital Signs (last 24 hours): Temp Pulse Resp BP Pulse Ox 99.4 F 93 H 20 147/90 99 02/28/18 04:00 02/28/18 04:00 02/28/18 04:00 02/28/18 04:00 02/28/18 04:00 Intake and Output: 02/28/18 02/28/18 06:59 18:59 Output Total 1000 Balance -1000 - Medications Medications: Current Medications Epoetin Constantine (Procrit) 5,000 unit IV MWF [facility] Last Admin: 02/27/18 22:21 Dose: 5,000 unit Heparin Sodium (Porcine) (Heparin) 5,000 units SC Q8 [facility] PRN Reason: Protocol Last Admin: 02/28/18 08:30 Dose: 5,000 units Insulin Human Lispro (Humalog) 0 units SC ACHS [facility] PRN Reason: Protocol Last Admin: 02/28/18 06:47 Dose: Not Given - Labs Labs: 02/28/18 04:35 02/28/18 04:35 PT 12.3 Seconds (9.8-13.1) 02/25/18 22:47 INR 1.1 (0.9-1.2) 02/25/18 22:47 APTT 43.5 Seconds (25.6-37.1) H 02/25/18 22:47 - Constitutional Appears: No Acute Distress - ENT Exam ENT Exam: Mucous Membranes Moist - Neck Exam Neck Exam: absent: Lymphadenopathy - Respiratory Exam Respiratory Exam: NORMAL BREATHING PATTERN. absent: Chest Wall Tenderness - Cardiovascular Exam Cardiovascular Exam: absent: Gallop, JVD, Rubs - GI/Abdominal Exam GI & Abdominal Exam: Soft, Normal Bowel Sounds - Extremities Exam Extremities Exam: absent: Calf Tenderness - Back Exam Back Exam: absent: CVA tenderness (L), CVA tenderness (R) - Neurological Exam Neurological Exam: Alert - Psychiatric Exam Psychiatric exam: Normal Affect - Skin Skin Exam: absent: Cyanosis Assessment and Plan (1) CHF (congestive heart failure) Status: Acute (2) Diabetes Status: Acute (3) ESRD (end stage renal disease) Assessment & Plan: End stage renal disease patient completed hemodialysis of 3 hours yesterday. Hypokalemia noted this morning patient to be given potassium chloride supplement Abnormal total protein which is high with high alkaline phosphatase and early she was complaining of back pain therefore multiple myeloma must be ruled out I suggest to do hematology consult was possible bone marrow or at least investigation with immunoglobulin. PTH still pending Patient requesting to go home. Discussed with the resident if the patient to go home she will need follow-up for this abnormal high total protein Status: Acute (4) Metabolic acidosis Status: Acute
--- NOTE | 2018-02-28 09:21 | CP.PCM.PN ---
<Madyson Vargas - Last Filed: 02/28/18 09:17> Subjective - Date & Time of Evaluation Date of Evaluation: 02/28/18 Time of Evaluation: 07:30 - Subjective Subjective: Patient seen and examined at bedside with Dr. Sanchez, more agreeable today. Reports she is feeling better, denies any pain. Denies SOB, nausea, fever or chills. Patient requesting to go home, discussed with patient her low serum potassium which needs to be treated and repeat lab work to be done for her elevated total protein. Objective - Vital Signs/Intake and Output Vital Signs (last 24 hours): Temp Pulse Resp BP Pulse Ox 97.8 F 94 H 10 L 156/96 H 90 L 02/28/18 08:00 02/28/18 08:00 02/28/18 08:00 02/28/18 08:00 02/28/18 08:00 Intake and Output: 02/28/18 02/28/18 06:59 18:59 Output Total 1000 Balance -1000 - Medications Medications: Current Medications Epoetin Constantine (Procrit) 5,000 unit IV MWF [facility] Last Admin: 02/27/18 22:21 Dose: 5,000 unit Heparin Sodium (Porcine) (Heparin) 5,000 units SC Q8 [facility] PRN Reason: Protocol Last Admin: 02/28/18 08:30 Dose: 5,000 units Insulin Human Lispro (Humalog) 0 units SC ACHS [facility] PRN Reason: Protocol Last Admin: 02/28/18 06:47 Dose: Not Given Vitamin B Complex/Vit C/Folic Acid (Nephro-Kali) 1 tab PO DAILY [facility] - Labs Labs: 02/28/18 04:35 02/28/18 04:35 PT 12.3 Seconds (9.8-13.1) 02/25/18 22:47 INR 1.1 (0.9-1.2) 02/25/18 22:47 APTT 43.5 Seconds (25.6-37.1) H 02/25/18 22:47 - Constitutional Appears: No Acute Distress - Eye Exam Eye Exam: EOMI - ENT Exam ENT Exam: Mucous Membranes Moist - Neck Exam Neck Exam: Full ROM - Respiratory Exam Respiratory Exam: NORMAL BREATHING PATTERN - Cardiovascular Exam Cardiovascular Exam: REGULAR RHYTHM Additional comments: right chest permacath in place, intact; left AV fistula with palpable thrill, intact - GI/Abdominal Exam GI & Abdominal Exam: Normal Bowel Sounds - Extremities Exam Extremities Exam: Full ROM - Neurological Exam Neurological Exam: Alert, Awake - Psychiatric Exam Psychiatric exam: Normal Affect, Normal Mood - Skin Skin Exam: Dry, Warm Assessment and Plan - Assessment and Plan (Free Text) Assessment: 37 yr old F admitted for metabolic acidosis and ESRD on HD with missed HD session. Improving. Hypokalemia. Total protein remains elevated. Per psych patient has capacity to make medical decisions. Plan: -Potassium chloride 40mEq PO -tranfer to med/surg -f/u serum protein electropheresis, serum Immunofixation IgG, IgA, IgM, serum kappa/lambda w/reflex -consider heme/onc consult pending lab results -Hemodialysis scheduled for tomorrow -Nephrology consult appreciated -tylenol PRN pain (had normal lumbar spine xray and normal triple phase bone scan in 01/2018) -blood culture negative x 48hrs -Lispro coverage scale ACHS -heart healthy/renal diet, IV fluids -PT/OT <Carlos Sanchez K - Last Filed: 03/02/18 12:46> Objective - Vital Signs/Intake and Output Vital Signs (last 24 hours): Temp Pulse Resp BP Pulse Ox 98.1 F 100 H 20 151/83 H 100 03/01/18 17:00 03/01/18 17:00 03/01/18 17:00 03/01/18 17:00 03/01/18 18:39 - Labs Labs: 02/28/18 04:35 03/01/18 09:14 PT 12.3 Seconds (9.8-13.1) 02/25/18 22:47 INR 1.1 (0.9-1.2) 02/25/18 22:47 APTT 43.5 Seconds (25.6-37.1) H 02/25/18 22:47 Assessment and Plan - Assessment and Plan (Free Text) Assessment: Patient was personally seen and examined by me in rounds with residents. Available labs and diagnostic data reviewed. Case, Patient's condition and management plan discussed with residents in rounds. Agree with resident's progress note. Plan: As ordered.
[2018-02-28] MEDS: Multivitamin Vitamin B Complex (Nephro-Vite) Tab PO SCH (10:39)
[2018-02-28 12:18] LABS: HEPATITIS B SURFACE AG Negative (NEGATIVE)
[2018-02-28 12:24] LABS: HEPATITIS B CORE AB NEGATIVE (NEGATIVE)
[2018-02-28 12:36] LABS: HEPATITIS C ANTIBODY NEGATIVE (NEGATIVE)
--- NOTE | 2018-03-01 06:53 | PQF ---
PROVIDER RESPONSE TEXT: OTher, volume overload REVIEWER QUERY TEXT: CHF Acuity and Type Acute Congestive Heart Failure is documented in the Medical Record. Please document the type if known Such as: Type: -- Systolic -- Diastolic -- Combined -- Other, please specify -OR: Diasgree Renal progress notes: dxs. include: CHF Acute: and ESRD -Hemodialysis The patient's Clinical Indicators include: xxxx Query created by: Katelyn Wilson on 02/28/2018 12:49 PM Electronically signed by: Carlos Sanchez 03/01/2018 6:50 AM
--- NOTE | 2018-03-01 07:45 | CP.PCM.PN ---
<Madyson Vargas - Last Filed: 03/01/18 09:16> Subjective - Date & Time of Evaluation Date of Evaluation: 03/01/18 Time of Evaluation: 07:45 - Subjective Subjective: Patient seen and examined at bedside with Dr. Sanchez. Denies chest pain, SOB, headaches or weakness. Patient is aware she has hemodialysis scheduled for today. Discussed with patient that some lab results are pending in regards to her increased total protein. Objective - Vital Signs/Intake and Output Vital Signs (last 24 hours): Temp Pulse Resp BP Pulse Ox 97.9 F 101 H 18 135/78 99 02/28/18 23:57 02/28/18 23:57 02/28/18 23:57 02/28/18 23:57 02/28/18 23:57 Intake and Output: 03/01/18 03/01/18 06:59 18:59 Intake Total 150 Balance 150 - Medications Medications: Current Medications Epoetin Constantine (Procrit) 5,000 unit IV MWF [facility] Last Admin: 02/27/18 22:21 Dose: 5,000 unit Heparin Sodium (Porcine) (Heparin) 5,000 units SC Q8 [facility] PRN Reason: Protocol Last Admin: 03/01/18 00:12 Dose: Not Given Insulin Human Lispro (Humalog) 0 units SC ACHS [facility] PRN Reason: Protocol Last Admin: 02/28/18 21:11 Dose: Not Given Pantoprazole Sodium (Protonix Ec Tab) 40 mg PO DAILY [facility] Vitamin B Complex/Vit C/Folic Acid (Nephro-Kali) 1 tab PO DAILY [facility] Last Admin: 02/28/18 10:39 Dose: 1 tab - Labs Labs: 02/28/18 04:35 02/28/18 04:35 PT 12.3 Seconds (9.8-13.1) 02/25/18 22:47 INR 1.1 (0.9-1.2) 02/25/18 22:47 APTT 43.5 Seconds (25.6-37.1) H 02/25/18 22:47 - Constitutional Appears: No Acute Distress - Head Exam Head Exam: NORMAL INSPECTION - Eye Exam Eye Exam: EOMI - ENT Exam ENT Exam: Mucous Membranes Moist - Respiratory Exam Respiratory Exam: NORMAL BREATHING PATTERN - Cardiovascular Exam Cardiovascular Exam: REGULAR RHYTHM Additional comments: right chest permcath in place, intact - GI/Abdominal Exam GI & Abdominal Exam: Normal Bowel Sounds - Extremities Exam Additional comments: left AV fistula intact, palpable thrill, sutures in place - Neurological Exam Neurological Exam: Alert, Awake, Oriented x3 Assessment and Plan - Assessment and Plan (Free Text) Assessment: 37 yr old F admitted for metabolic acidosis and ESRD on HD with missed HD session. Improving. Hypokalemia.Total protein remains elevated. Per psych patient has capacity to make medical decisions. Plan: -f/u BMP -f/u serum protein electropheresis, serum Immunofixation IgG, IgA, IgM, serum kappa/lambda w/reflex -consider heme/onc consult pending lab results -Hemodialysis scheduled for today -Nephrology consult appreciated -tylenol PRN pain (had normal lumbar spine xray and normal triple phase bone scan in 01/2018) -blood culture negative x 48hrs -Lispro coverage scale ACHS -heart healthy/renal diet, IV fluids -PT/OT <Sanchez,Carlos K - Last Filed: 03/02/18 12:50> Objective - Vital Signs/Intake and Output Vital Signs (last 24 hours): Temp Pulse Resp BP Pulse Ox 98.1 F 100 H 20 151/83 H 100 03/01/18 17:00 03/01/18 17:00 03/01/18 17:00 03/01/18 17:00 03/01/18 18:39 - Labs Labs: 02/28/18 04:35 03/01/18 09:14 PT 12.3 Seconds (9.8-13.1) 02/25/18 22:47 INR 1.1 (0.9-1.2) 02/25/18 22:47 APTT 43.5 Seconds (25.6-37.1) H 02/25/18 22:47 Assessment and Plan - Assessment and Plan (Free Text) Assessment: Patient was personally seen and examined by me in rounds with residents. Available labs and diagnostic data reviewed. Case, Patient's condition and management plan discussed with residents in rounds. Agree with resident's progress note. Plan: As ordered.
[2018-03-01] MEDS: Multivitamin Vitamin B Complex (Nephro-Vite) Tab PO SCH (08:38)
[2018-03-01] MEDS: Insulin Lispro (humaLOG) 100 Units/ml Inj SC SCH ×3 (08:39→17:18)
[2018-03-01] MEDS ORDERED: Pantoprazole 40 mg EC Tab PO SCH (09:00)
[2018-03-01 09:45] LABS: CALCIUM 8.8 mg/dL (8.4-10.2)
[2018-03-01] MEDS: Epoetin Alfa 20000 UNIT/ML Inj IV SCH (09:49)
[2018-03-01] MEDS ORDERED: Albumin Human 25% (12.5 gm/50 ml) IV STA ×2 (11:42→11:56)
--- NOTE | 2018-03-01 12:56 | CP.PCM.PN ---
Subjective - Date & Time of Evaluation Date of Evaluation: 03/01/18 Time of Evaluation: 12:54 - Subjective Subjective: Dialysis note She was seen on hemodialysis now. Ultrafiltration only lives in 500 mL. Blood pressure is low systolic around 90 Given normal saline and 25% 50 mL albumin done to order to be given now Patient is asymptomatic no complaint today appeared to be comfortable on hemodialysis Objective - Vital Signs/Intake and Output Vital Signs (last 24 hours): Temp Pulse Resp BP Pulse Ox 98 F 96 H 18 143/80 98 03/01/18 08:53 03/01/18 08:53 03/01/18 08:53 03/01/18 08:53 03/01/18 08:53 Intake and Output: 03/01/18 03/01/18 06:59 18:59 Intake Total 150 Balance 150 - Medications Medications: Current Medications Epoetin Constantine (Procrit) 5,000 unit IV MWF [facility] Last Admin: 03/01/18 09:49 Dose: 5,000 unit Heparin Sodium (Porcine) (Heparin) 5,000 units SC Q8 [facility] PRN Reason: Protocol Last Admin: 03/01/18 09:50 Dose: 5,000 units Insulin Human Lispro (Humalog) 0 units SC ACHS [facility] PRN Reason: Protocol Last Admin: 03/01/18 12:04 Dose: Not Given Pantoprazole Sodium (Protonix Ec Tab) 40 mg PO DAILY [facility] Last Admin: 03/01/18 08:38 Dose: 40 mg Vitamin B Complex/Vit C/Folic Acid (Nephro-Kali) 1 tab PO DAILY [facility] Last Admin: 03/01/18 08:38 Dose: 1 tab - Labs Labs: 02/28/18 04:35 03/01/18 09:14 PT 12.3 Seconds (9.8-13.1) 02/25/18 22:47 INR 1.1 (0.9-1.2) 02/25/18 22:47 APTT 43.5 Seconds (25.6-37.1) H 02/25/18 22:47 - Constitutional Appears: No Acute Distress - ENT Exam ENT Exam: Mucous Membranes Moist - Respiratory Exam Respiratory Exam: NORMAL BREATHING PATTERN. absent: Chest Wall Tenderness - Cardiovascular Exam Cardiovascular Exam: absent: JVD, Rubs - GI/Abdominal Exam GI & Abdominal Exam: Soft, Normal Bowel Sounds - Extremities Exam Extremities Exam: absent: Calf Tenderness - Back Exam Back Exam: absent: CVA tenderness (L), CVA tenderness (R) - Neurological Exam Neurological Exam: Alert - Psychiatric Exam Psychiatric exam: Anxious - Skin Skin Exam: absent: Cyanosis Assessment and Plan (1) CHF (congestive heart failure) Status: Acute (2) Diabetes Status: Acute (3) ESRD (end stage renal disease) Assessment & Plan: End stage renal disease patient is receiving hemodialysis now Potassium 3.8 Abnormal total protein which is high with high alkaline phosphatase and early she was complaining of back pain therefore multiple myeloma must be ruled out I suggest to do hematology consult was possible bone marrow or at least investigation with immunoglobulin. PTH still pending Patient requesting to go home. Discussed with the resident if the patient to go home she will need follow-up for this abnormal high total protein Status: Acute (4) Metabolic acidosis Status: Acute
[2018-03-01 16:06] VITALS: BP 151/83; PULSE 100; RESP 20; TEMP 98.1; O2SAT 100
== END 2018-03-01 18:30 | disposition left against medical advice (07) | DRG 296 ==
LOC: H.ER 20:55 → H.ERHOLD 02-26 00:34 → H.ICU/CCU 02-26 02:06 → H.MEDSURG1 02-28 21:30
PROVIDERS: ADMIT Internal Medicine; ATTEND Internal Medicine
PROC: 5A1D70Z Performance of Urinary Filtration, Intermittent, Less than 6 Hours Per Day (ICD-10-PCS; principal; 2018-02-26)
PROC: 5A1D70Z Performance of Urinary Filtration, Intermittent, Less than 6 Hours Per Day (ICD-10-PCS; 2018-02-28)
DX: E87.2 Acidosis (principal); N18.6 End stage renal disease; I13.2 Hypertensive heart and chronic kidney disease with heart failure and with stage 5 chronic kidney disease, or end stage renal disease; E11.65 Type 2 diabetes mellitus with hyperglycemia; E11.22 Type 2 diabetes mellitus with diabetic chronic kidney disease; E11.42 Type 2 diabetes mellitus with diabetic polyneuropathy; I50.9 Heart failure, unspecified; E11.621 Type 2 diabetes mellitus with foot ulcer; L97.429 Non-pressure chronic ulcer of left heel and midfoot with unspecified severity; E87.6 Hypokalemia; E86.0 Dehydration; I95.89 Other hypotension; D63.1 Anemia in chronic kidney disease; D72.828 Other elevated white blood cell count; Z99.2 Dependence on renal dialysis; Z79.84 Long term (current) use of oral hypoglycemic drugs; Z88.1 Allergy status to other antibiotic agents; Z86.718 Personal history of other venous thrombosis and embolism; Z98.891 History of uterine scar from previous surgery